=== PATIENT | female | born 1980 | race Caucasian/White ===

== ENCOUNTER 2017-09-03 10:43 | Emergency (ER) | payer OTHER ==
--- NOTE | 2017-09-03 11:14 | EDPHY ---
H & P Time Seen by Provider: 09/03/17 11:01 HPI/ROS: CHIEF COMPLAINT: Nausea vomiting diarrhea HISTORY OF PRESENT ILLNESS: Patient was feeling well yesterday woke up at 3:00 a.m. today with nausea vomiting and diarrhea and can't keep anything down. Symptoms are severe but not associated with abdominal pain. No recent sick contacts. No urinary or other symptoms. REVIEW OF SYSTEMS: Eye: no change in vision ENT: no sore throat Cardiac: no chest pain or syncope Pulmonary: no cough or SOB Abdomen: HPI Musculoskeletal: no back pain Skin: no rash Neuro: no headache Constitutional: no fever : no urinary symptoms A comprehensive 10 point review of systems is otherwise negative aside from elements mentioned in the history of present illness. PAST MEDICAL HISTORY: Asthma and AVNRT Social history: No known recent sick contacts, no foreign travel General Appearance: Alert and conversant, cooperative. Eyes: No scleral icterus. ENT, Mouth: Dry mucous membranes Respiratory: Normal respiratory effort, breath sounds equal, lungs are clear to auscultation. Cardiovascular: Regular rate and rhythm. Gastrointestinal: Abdomen is soft and non tender. No McBurney's point tenderness. Neurological: Alert and oriented x3. Normally conversant. Face symmetric, normal movement and sensation in all extremities. Skin: Warm and dry, no rashes. Musculoskeletal: No peripheral edema and no joint swelling. Psychiatric: Not agitated. Emergency Department course/MDM: Patient presents with symptoms of gastroenteritis and dehydration clinically. Does not have acute surgical abdominal process on exam. IV normal saline 2 L, Zofran 4 mg IV. 1302: Received IV Phenergan for persistent nausea, 2 L IV normal saline in. Lab ordered with continued symptoms. 1357: Feels better, wants to try oral fluids, discharge if tolerates. Smoking Status: Never smoked Constitutional: Initial Vital Signs Temperature (C) 37.1 C 09/03/17 10:54 Heart Rate 79 09/03/17 10:54 Respiratory Rate 16 09/03/17 10:54 Blood Pressure 122/85 H 09/03/17 10:54 O2 Sat (%) 99 09/03/17 10:54 O2 Delivery Mode Room Air Allergies/Adverse Reactions: ciprofloxacin [From Cipro] Allergy (Verified 09/08/09 19:08) ciprofloxacin HCl [From Cipro] Allergy (Verified 09/08/09 19:08) Sulfa (Sulfonamide Antibiotics) Allergy (Verified 09/08/09 19:08) Home Medications: Medication Instructions Recorded ALBUTEROL SULFATE 09/08/09 Reglan 09/08/09 Ondansetron Odt [Zofran Odt] 4 mg PO Q4PRN #6 tab 09/03/17 Medical Decision Making Differential Diagnosis: Differential diagnosis considered for nausea and vomiting including but not limited to gastroenteritis, gastritis, appendicitis, and medication side effect. - Data Points Laboratory Results: Laboratory Results 09/03/17 11:15 09/03/17 11:15 09/03/17 09/03/17 09/03/17 11:15 11:15 11:15 WBC 12.32 10^3/uL H 10^3/uL (3.80-9.50) RBC 5.42 10^6/uL H 10^6/uL (4.18-5.33) Hgb 15.4 g/dL g/dL (12.6-16.3) Hct 44.8 % % (38.0-47.0) MCV 82.7 fL fL (81.5-99.8) MCH 28.4 pg pg (27.9-34.1) MCHC 34.4 g/dL g/dL (32.4-36.7) RDW 13.7 % % (11.5-15.2) Plt Count 213 10^3/uL 10^3/uL (150-400) MPV 11.6 fL fL (8.7-11.7) Neut % (Auto) 89.2 % H % (39.3-74.2) Lymph % (Auto) 4.1 % L % (15.0-45.0) Tift % (Auto) 3.9 % L % (4.5-13.0) Eos % (Auto) 1.9 % % (0.6-7.6) Baso % (Auto) 0.3 % % (0.3-1.7) Nucleat RBC Rel Count 0.0 % % (0.0-0.2) Absolute Neuts (auto) 11.00 10^3/uL H 10^3/uL (1.70-6.50) Absolute Lymphs (auto) 0.50 10^3/uL L 10^3/uL (1.00-3.00) Absolute Monos (auto) 0.48 10^3/uL 10^3/uL (0.30-0.80) Absolute Eos (auto) 0.23 10^3/uL 10^3/uL (0.03-0.40) Absolute Basos (auto) 0.04 10^3/uL 10^3/uL (0.02-0.10) Absolute Nucleated RBC 0.00 10^3/uL 10^3/uL (0-0.01) Immature Gran % 0.6 % % (0.0-1.1) Immature Gran # 0.07 10^3/uL 10^3/uL (0.00-0.10) Sodium 145 mEq/L H mEq/L (134-144) Potassium 4.0 mEq/L mEq/L (3.5-5.2) Chloride 110 mEq/L mEq/L (97-110) Carbon Dioxide 23 mEq/l mEq/l (22-31) Anion Gap 12 mEq/L mEq/L (8-16) BUN 14 mg/dL mg/dL (7-23) Creatinine 0.6 mg/dL mg/dL (0.6-1.0) Estimated GFR > 60 Glucose 111 mg/dL H mg/dL (70-100) Calcium 9.9 mg/dL mg/dL (8.5-10.4) Beta HCG, Qual NEGATIVE Medications Given: Discontinued Medications Sodium Chloride (Ns) 1,000 mls @ 0 mls/hr IV EDNOW ONE; Wide Open PRN Reason: Protocol Stop: 09/03/17 11:20 Last Admin: 09/03/17 11:26 Dose: 1,000 mls Sodium Chloride (Ns) 1,000 mls @ 0 mls/hr IV EDNOW ONE; Wide Open PRN Reason: Protocol Stop: 09/03/17 11:20 Last Admin: 09/03/17 11:26 Dose: 1,000 mls Ondansetron HCl (Zofran) 4 mg IVP EDNOW ONE Stop: 09/03/17 11:20 Last Admin: 09/03/17 11:26 Dose: 4 mg Promethazine HCl (Phenergan) 12.5 mg IVP ONCE ONE Stop: 09/03/17 12:43 Last Admin: 09/03/17 12:45 Dose: 12.5 mg Departure - Departure Disposition: Home, Routine, Self-Care Clinical Impression: Dehydration Nausea & vomiting Qualifiers: Vomiting type: unspecified Vomiting Intractability: non-intractable Qualified Code(s): R11.2 - Nausea with vomiting, unspecified Condition: Good Instructions: Dehydration (ED) Referrals: Dandre Pope MD [Primary Care Provider] - As per Instructions Prescriptions: Ondansetron Odt [Zofran Odt] 4 mg PO Q4PRN #6 tab
[2017-09-03] MEDS ORDERED: ONDANSETRON 4 MG/2 ML VIAL IVP ONE (11:19)
[2017-09-03] MEDS ORDERED: NS 1,000 ML IV ONE ×2 (11:19)
[2017-09-03] MEDS ORDERED: PROMETHAZINE HCL 25 MG/ML INJ ONE (12:41)
[2017-09-03] MEDS ORDERED: PROMETHAZINE HCL 25 MG/ML INJ IVP ONE (12:42)
[2017-09-03 13:12] LABS: PLATELET COUNT 213 10^3/uL (150-400)
[2017-09-03 14:53] VITALS: BP 89/57; PULSE 67; RESP 12; TEMP 99.1; O2SAT 96
== END 2017-09-03 14:51 | disposition home or self-care (01) ==
DX: R11.2 Nausea with vomiting, unspecified (principal); E86.0 Dehydration; J45.909 Unspecified asthma, uncomplicated; E86.9 Volume depletion, unspecified
CPT/HCPCS: 96374; J2405; J2550